=== PATIENT | male | born 1995 | race Caucasian/White ===

== ENCOUNTER 2021-05-30 15:52 | Emergency (ER) | payer OTHER ==
[~2021-05-30] VITALS: Ht 180.3 cm; Wt 83.9 kg
[2021-05-30 16:52] LABS: BASOPHILS 0.9 % (0.0-2.0); EOSINOPHILS 1.6 % (0.0-3.0); HEMATOCRIT 41.4 % (42.0-52.0); HEMOGLOBIN 13.8 gm/dL (14.0-18.0); LYMPHOCYTES 18.7 % (24.0-44.0); MCH 31.2 pg (26.0-34.0); MCHC 33.3 g/dL (28.0-37.0); MCV 93.6 fL (80.0-100.0); MONOCYTES 5.6 % (1.0-8.0); PLATELET COUNT 369 thou/uL (150-400); POLYS 73.2 % (36.0-66.0); RBC 4.43 mil/uL (4.50-6.00); RDW 12.7 % (10.5-14.5); WBC 12.3 thou/uL (4.0-11.0)
[2021-05-30 17:03] LABS: CALCIUM 9.5 mg/dL (8.5-10.1); CREATININE 1.4 mg/dL (0.7-1.3)
[2021-05-30 17:14] LABS: ALBUMIN 4.2 g/dL (3.4-5.0); TOTAL BILIRUBIN 0.4 mg/dL (0.2-1.0); TOTAL PROTEIN 8.6 g/dL (6.4-8.2)
[2021-05-30 18:43] LABS: URINE BILIRUBIN NEGATIVE (Negative); URINE BLOOD NEGATIVE (Negative); URINE CLARITY CLEAR; URINE COLOR YELLOW; URINE GLUCOSE-RANDOM* NEGATIVE (Negative); URINE KETONES NEGATIVE (Negative); URINE LEUKOCYTES-REFLEX NEGATIVE (Negative); URINE NITRITE-REFLEX NEGATIVE (Negative); URINE PROTEIN (DIPSTICK) NEGATIVE (Negative); URINE SPECIFIC GRAVITY 1.015 (1.005-1.035); URINE UROBILINOGEN 0.2 E.U./dl (0.2-1.0)
[2021-05-30] MEDS ORDERED: NORCO7.5 PO (20:29)
[2021-05-30 21:26] VITALS: BP 107/55
--- NOTE | 2021-06-02 07:35 | EKG ---
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 : 1995 Requested By: Lazaro Rubio Order Number: [id number] MD: Vazquez Asencio Measurements Intervals [place] Rate: 73 P: -31 NH: 148 QRS: -89 QRSD: 125 T: 38 QT: 380 QTc: 419 Interpretive Statements Sinus rhythm Right bundle branch block J Point elevation No previous ECG available for comparison Electronically Signed On 06-02-2021 7:35:20 [employer] by Vazquez Asencio [email or web address] <ELECTRONICALLY SIGNED> By: Vazquez Asencio MD, [facility] 06/02/21 0735 1707 1707 Vazquez Asencio MD, FACC /EPI
== END 2021-05-30 21:26 | disposition home or self-care (01) ==
LOC: ER 15:52
PROVIDERS: Emergency Medicine
DX: R07.89 Other chest pain (principal); Z20.822 Contact with and (suspected) exposure to COVID-19; R10.32 Left lower quadrant pain; Z85.47 Personal history of malignant neoplasm of testis; Z88.6 Allergy status to analgesic agent